=== PATIENT | male | born 1945 | race Caucasian/White ===

== ENCOUNTER 2020-01-08 14:43 | Outpatient (CLI) | payer MEDICARE ==
--- NOTE | 2020-01-08 15:21 | RAD ---
EXAM: Two views chest PROVIDED CLINICAL HISTORY: COPD exacerbation. COMPARISON: 12/03/2018 and 01/09/2017 FINDINGS: Cardiac silhouette and pulmonary vasculature are within normal limits. Again noted are mild increased interstitial densities within the lungs bilaterally unchanged when compared to the prior studies and likely attributable to chronic interstitial fibrotic lung changes. No consolidation or pleural fl uid is identified. Calcification of the anterior longitudinal ligament is again seen with degenerative changes in the spine. Chest is stable compared to prior study. IMPRESSION: Stable chronic lung changes without evidence of an acute cardiopulmonary process.
--- NOTE | 2020-01-08 15:30 | RAD ---
EXAM: XR Abdomen 2 View PROVIDED CLINICAL HISTORY: Abdominal bloating. COMPARISON: None FINDINGS: Limited visualized lung bases appear clear. Bowel gas pattern is nonspecific. No free intraperitoneal gas is seen beneath the hemidiaphragms on upright imaging. Phleboliths overlie the pelvis. No obvious suspicious calcifications are seen. Multilevel degenerative change are seen in the spine. Pos toperative changes left hip are noted with osteoarthritis involving the right hip. IMPRESSION: Nonspecific bowel gas pattern.
== END 2020-01-08 14:44 | disposition home or self-care (01) ==
LOC: MADRAD 14:43
PROVIDERS: ATTEND Nurse Practitioner Family
DX: J44.1 Chronic obstructive pulmonary disease with (acute) exacerbation (principal); R18.8 Other ascites
CPT/HCPCS: 71046; 74019

== ENCOUNTER 2022-09-09 19:54 | Emergency (ER) | payer MEDICARE, BC, OTHER | END 2022-09-09 21:48 | disposition home or self-care (01) | LOC: MADERS 19:54 | DX: T83.091A Other mechanical complication of indwelling urethral catheter, initial encounter (principal); J44.9 Chronic obstructive pulmonary disease, unspecified; F17.210 Nicotine dependence, cigarettes, uncomplicated; Z79.899 Other long term (current) drug therapy; Z85.46 Personal history of malignant neoplasm of prostate; Z85.01 Personal history of malignant neoplasm of esophagus; Z85.528 Personal history of other malignant neoplasm of kidney | CPT/HCPCS: 99283 ==

== ENCOUNTER 2024-04-01 12:31 | Emergency (ER) | payer MEDICARE, OTHER ==
[2024-04-01 13:10] LABS: #Basophils 0.1 thou/uL (0.0-0.2); #Eosinphils 0.1 thou/uL (0.0-0.7); #Lymphocytes 1.4 thou/uL (1.20-3.40); #Monocytes 0.6 thou/uL (0.11-0.59); #Neutrophils 6.8 thou/uL (1.40-6.50); %Basophils 0.7 % (0.0-1.0); %Eosinophils 1.4 % (0.0-10.0); %Lymphocytes 15.4 % (21.0-51.0); %Monocytes 6.8 % (0.0-10.0); %Neutrophils 75.8 % (42.0-75.0); Hematocrit 53.9 % (42.0-52.0); Hemoglobin 16.4 g/dL (14.0-18.0); Mean Corpuscular HGB CONC 30.4 g/dL (32.0-36.0); Mean Corpuscular Hemoglobin 31.4 pg (27.0-31.0); Mean Corpuscular Volume 103.3 fl (78.0-98.0); Mean Platelet Volume 7.6 fL (7.4-10.4); Platelet Count 168 10x3/uL (130-400); Red Blood Cell (RBC) Count 5.22 mill/uL (4.70-6.10); White Blood Cell (WBC) Count 8.9 10x3/uL (4.8-10.8)
[2024-04-01 13:15] LABS: Prothrombin Time 13.1 sec (12.0-14.7)
[2024-04-01 13:16] LABS: PTT 33.2 sec (22.9-36.1)
[2024-04-01 13:19] LABS: D-Dimer Test 0.67 mcg/mL (0.27-0.43)
[2024-04-01 13:20] LABS: Anion Gap 14 mmol/L (10-20); BUN (Urea Nitrogen) 25 mg/dL (8.4-25.7); Calc. Creatinine Clearance 0 mL/min (70-130); Carbon Dioxide 25 mmol/L (23-31); Chloride 103 mmol/L (98-107); Estimated GFR 40; Glucose 164 mg/dL (83-110); Sodium 138 mmol/L (136-145)
[2024-04-01] MEDS ORDERED: Mag-Al 1200 mg/1200 mg/30 ML UDCUP ONE (13:22)
[2024-04-01] MEDS ORDERED: cefTRIAXone (ROCEPHIN) 1 GM VIAL ONE (13:22)
[2024-04-01] MEDS ORDERED: methylPREDNISolone Sod Succ/PF 125 MG/2 ML VIAL ONE (13:22)
[2024-04-01] MEDS ORDERED: Ipratropium/Albuterol 3 ML NEB ONE (13:22)
[2024-04-01] MEDS ORDERED: Lidocaine Viscous Sol 2% 15 ml UD Cup ONE (13:22)
[2024-04-01] MEDS ORDERED: Sodium Chloride 0.9% 100 ML ONE (13:23)
[2024-04-01 13:25] LABS: Troponin I Less than 0.010 ng/mL (< 0.028)
== END 2024-04-01 16:22 | disposition left against medical advice (07) ==
LOC: MADERS 12:31
DX: J44.1 Chronic obstructive pulmonary disease with (acute) exacerbation (principal); J18.9 Pneumonia, unspecified organism; F17.210 Nicotine dependence, cigarettes, uncomplicated; K21.9 Gastro-esophageal reflux disease without esophagitis; Z85.528 Personal history of other malignant neoplasm of kidney; Z85.01 Personal history of malignant neoplasm of esophagus; Z79.82 Long term (current) use of aspirin; R07.9 Chest pain, unspecified
CPT/HCPCS: 71045; 80048; 84484; 85025; 85379; 85610; 85730; 93005; 96374; 96375; J0696; J2930; J7620